=== PATIENT | male | born 1990 | race Caucasian/White ===

== ENCOUNTER 2019-09-08 15:17 | Emergency (ER) | payer MEDICAID, OTHER ==
[~2019-09-08] VITALS: Ht 172.7 cm; Wt 54.8 kg
[~2019-09-08 15:17] MED LIST: AZIT500T10 PO; INSU100C SQ-INSULIN; INSU100I29 SC; MAGN400T26 PO; NPH,100I4 SQ-INSULIN
[2019-09-08] MEDS ORDERED: SODIUM CHLORIDE FLUSH 10ML SYR IVF ONE (16:00)
[2019-09-08] MEDS ORDERED: ONDANSETRON 2MG/ML, 2ML IVPush ONE (16:00)
[2019-09-08] MEDS ORDERED: SODIUM CHLORIDE 0.9% 1,000ML IVBOLUS ONE ×2 (16:00→17:00)
[2019-09-08 16:03] LABS: BASOPHILS # (AUTO) 0.08 x10^3/uL (0-0.1); BASOPHILS % (AUTO) 1 % (0-1); EOSINOPHILS # (AUTO) 0.11 x10^3/uL (0-0.4); EOSINOPHILS % (AUTO) 1 % (1-7); LYMPHOCYTES % (AUTO) 23 % (22-44); MD NO; MEAN CORPUSCULAR HEMOGLOBIN 34.4 pg (27.5-34.5); MEAN CORPUSCULAR HGB CONC 34.3 g/dL (33.2-36.2); MEAN CORPUSCULAR VOLUME 100.4 fL (81-97); MEAN PLATELET VOLUME 7.4 fL (7.4-10.4); MONOCYTES # (AUTO) 0.45 x10^3/uL (0.2-0.8); MONOCYTES % (AUTO) 6 % (2-9); NEUTROPHILS # (AUTO) 5.31 x10^3/uL (1.8-6.8); NEUTROPHILS % (AUTO) 69 % (42-75); PLATELET COUNT 265 x10^3/uL (130-400); RED BLOOD COUNT 4.54 x10^6/uL (4.38-5.82); RED CELL DISTRIBUTION WIDTH 12.6 % (9.4-14.8)
[2019-09-08] MEDS ORDERED: ONDANSETRON 2MG/ML, 2ML ONE (16:05)
[2019-09-08 16:13] LABS: PH, VENOUS 7.264 pH (7.320-7.420)
[2019-09-08 16:13] LABS: ALANINE AMINOTRANSFERASE 32 U/L (12-78); ALBUMIN 4.3 g/dL (3.4-5.0); ANION GAP 19 mmol/L (5-15); CALCIUM 9.6 mg/dL (8.5-10.1); CHLORIDE 93 mmol/L (98-107); CREATININE 1.02 mg/dL (0.7-1.3)
[2019-09-08 16:15] LABS: O2 FLOW ROOM AIR L/min
[2019-09-08 16:16] LABS: ALKALINE PHOSPHATASE 138 U/L (45-117); BILIRUBIN,TOTAL 0.9 mg/dL (0.2-1.0); MICROSCOPIC AUTO; TOTAL PROTEIN 8.8 g/dL (6.4-8.2)
[2019-09-08 16:21] LABS: CULTURE INDICATED? NO
[2019-09-08] MEDS ORDERED: INSU100V8 SQ (16:22)
[2019-09-08 16:30] LABS: ACETONE, SERUM Large (80mg/dL) mg/dL (Negative)
[2019-09-08] MEDS ORDERED: PROMETHAZINE 25 MG/ML, 1ML ONE (16:33)
[2019-09-08] MEDS ORDERED: INSULIN SINGLE DOSE, ER ONE (16:43)
--- NOTE | 2019-09-08 16:55 | NUR ---
ASSUMED CARE OF PT 1615. BGL 399. MEDS PER NOV. PT A&OX4 GCS 15, FATHER AT BEDSIDE. PT VOMITED X1, PHENERGAN PER NOV.
[2019-09-08] MEDS ORDERED: INSULIN REGULAR 100 UNITS/ML, 3ML VIAL SQ-INSULIN ONE (17:00)
[2019-09-08] MEDS ORDERED: PROMETHAZINE 25 MG/ML, 1ML IM ONE (17:00)
--- NOTE | 2019-09-08 17:45 | NUR ---
2nd bolus infusing, bgl 313, pt resting, no more vomiting. vss. sr on monitor. call marie in reach.
--- NOTE | 2019-09-08 18:41 | NUR ---
PIV repositioned/retaped, was kinked off. fluids infusing, plan to recheck labs after 2nd bolus, MD aware of delay in fluids. vss, denies nausea at this time. call marie in reach.
--- NOTE | 2019-09-08 19:15 | NUR ---
BGL 183, IVF INFUSED, MD AWARE, LABS ORDERED.
[2019-09-08 19:38] LABS: ANION GAP 13 mmol/L (5-15); CALCIUM 8.1 mg/dL (8.5-10.1); CHLORIDE 106 mmol/L (98-107); CREATININE 0.75 mg/dL (0.7-1.3)
[2019-09-08 20:06] VITALS: BP 119/78
== END 2019-09-08 20:17 | disposition home or self-care (01) ==
LOC: ED 19:07
DX: E10.649 Type 1 diabetes mellitus with hypoglycemia without coma (principal); E10.10 Type 1 diabetes mellitus with ketoacidosis without coma; E10.40 Type 1 diabetes mellitus with diabetic neuropathy, unspecified; Z76.0 Encounter for issue of repeat prescription; F17.210 Nicotine dependence, cigarettes, uncomplicated
CPT/HCPCS: 36415; 80048; 80053; 81001; 82010; 82040; 82803; 82962; 85025; 96361; 96372; 96374; 99283; J1815; J2405; J2550; J7030

== ENCOUNTER 2019-09-09 06:24 | Inpatient (IN) | payer MEDICAID ==
[~2019-09-09] VITALS: Ht 177.8 cm; Wt 54.8 kg
[~2019-09-09 06:24] MED LIST changes: +INSU100V8 SQ
[2019-09-09] MEDS ORDERED: ONDANSETRON 2MG/ML, 2ML ONE (06:54)
[2019-09-09] MEDS ORDERED: FAMOTIDINE 20 MG/2 ML ONE ×2 (06:55→09:54)
[2019-09-09] MEDS ORDERED: ONDANSETRON 2MG/ML, 2ML IVPush ONE (07:00)
[2019-09-09] MEDS ORDERED: FAMOTIDINE 20 MG/2 ML IVPush ONE (07:00)
--- NOTE | 2019-09-09 07:05 | NUR ---
zaire simeon in to assess with me upon rooming pt, bedside report exchanged.
[2019-09-09] MEDS ORDERED: PANTOPRAZOLE 80 MG in SODIUM CHLORIDE 0.9% 50 ML IVPB ONE (07:08)
[2019-09-09] MEDS ORDERED: PANTOPRAZOLE 80 MG in SODIUM CHLORIDE 0.9% 100 ML IV SCH (07:08)
[2019-09-09] MEDS ORDERED: PANTOPRAZOLE 40 MG IV ONE (07:21)
[2019-09-09] MEDS ORDERED: PROMETHAZINE 25 MG/ML, 1ML ONE (07:21)
[2019-09-09] MEDS ORDERED: SODIUM CHLORIDE 0.9% 1,000ML IVBOLUS ONE (07:30)
[2019-09-09] MEDS ORDERED: PANTOPRAZOLE 40 MG IV IV ONE (07:30)
[2019-09-09] MEDS ORDERED: PROMETHAZINE 25 MG/ML, 1ML IM ONE (07:30)
[2019-09-09] MEDS ORDERED: SODIUM CHLORIDE FLUSH 10ML SYR IVF ONE (07:30)
--- NOTE | 2019-09-09 07:36 | NUR ---
PT CONTINUES TO VOMIT AFTER RECEIVING ZOFRAN. PHENERGAN GIVEN. IV BOLUS COMPLETED. WILL CONTINUE TO MONITOR
[2019-09-09 08:13] LABS: PH, VENOUS 7.014 pH (7.320-7.420)
--- NOTE | 2019-09-09 08:15 | NUR ---
CONTINUES TO VOMIT BUT FREQUENCY HAS SLOWED DOWN. PT HAS DIARRHEA WHEN HE VOMITS, COUGHS, URINATES. PT REMAINS A&O. CONTINUE TO MONITOR
[2019-09-09 08:22] LABS: MEAN CORPUSCULAR HEMOGLOBIN 34.6 pg (27.5-34.5); MEAN CORPUSCULAR VOLUME 101.7 fL (81-97); PLATELET COUNT 266 x10^3/uL (130-400); RED BLOOD COUNT 4.42 x10^6/uL (4.38-5.82); RED CELL DISTRIBUTION WIDTH 12.8 % (9.4-14.8)
[2019-09-09 08:26] LABS: ALBUMIN 3.9 g/dL (3.4-5.0); ANION GAP 28 mmol/L (5-15); CALCIUM 9.4 mg/dL (8.5-10.1); CHLORIDE 99 mmol/L (98-107)
[2019-09-09 08:30] LABS: ALANINE AMINOTRANSFERASE 28 U/L (12-78); ALKALINE PHOSPHATASE 123 U/L (45-117); BILIRUBIN,TOTAL 0.9 mg/dL (0.2-1.0); CREATININE 1.22 mg/dL (0.7-1.3); TOTAL PROTEIN 8.1 g/dL (6.4-8.2)
[2019-09-09] MEDS ORDERED: LACTATED RINGERS 1,000 ML IV ONE (08:30)
[2019-09-09 08:32] LABS: ACETONE, SERUM Large (80mg/dL) mg/dL (Negative)
--- NOTE | 2019-09-09 08:45 | NUR ---
PT ABLE TO STAND UP AT EDGE OF BED WHILE INCONTINENCE CLEANED AND WHEN USING URINAL. FATHER REMAINS AT BEDSIDE.
[2019-09-09 08:58] LABS: MICROSCOPIC INDICATED
[2019-09-09 08:59] LABS: CULTURE INDICATED? NO
[2019-09-09] MEDS ORDERED: LACTATED RINGERS 1,000 ML IVBOLUS ONE (09:00)
[2019-09-09 09:07] LABS: BASOPHILS # (AUTO) 0.04 x10^3/uL (0-0.1); BASOPHILS % (AUTO) 0 % (0-1); EOSINOPHILS # (AUTO) 0.02 x10^3/uL (0-0.4); EOSINOPHILS % (AUTO) 0 % (1-7); LYMPHOCYTES # (AUTO) 2.01 x10^3/uL (1-3.4); LYMPHOCYTES % (AUTO) 16 % (22-44); MD SCAN; MONOCYTES # (AUTO) 0.28 x10^3/uL (0.2-0.8); MONOCYTES % (AUTO) 2 % (2-9); NEUTROPHILS # (AUTO) 10.05 x10^3/uL (1.8-6.8); NEUTROPHILS % (AUTO) 81 % (42-75)
--- NOTE | 2019-09-09 09:09 | NUR ---
REPORT TO PB ELDER
--- NOTE | 2019-09-09 09:22 | NUR ---
THROUGHPUT RN: ISSAC AT [facility] AND CESAR AT [facility] BOTH DECLINED TO ACCEPT PT. PSN FAXED TO [facility].
[2019-09-09] MEDS ORDERED: LABETALOL 5MG/ML, 20ML IVPush PRN (09:30)
[2019-09-09] MEDS ORDERED: DOCUSATE 100 MG CAPSULE PO PRN (09:30)
[2019-09-09] MEDS ORDERED: FAMOTIDINE 20 MG/2 ML IVPush SCH (09:30)
[2019-09-09] MEDS ORDERED: hydrALAzine 20 MG/ML, 1ML IVPush PRN (09:30)
[2019-09-09] MEDS ORDERED: ENOXAPARIN 40 MG/0.4 ML SQ SCH (09:30)
[2019-09-09] MEDS ORDERED: ACETAMINOPHEN 325 MG TABLET PO PRN (09:30)
[2019-09-09] MEDS ORDERED: ONDANSETRON 2MG/ML, 2ML IVPush PRN (09:30)
[2019-09-09] MEDS ORDERED: NS + 20MEQ KCL 1,000 ML IV ONE (09:55)
[2019-09-09 10:00] LABS: FREE T4 (FREE THYROXINE) 1.07 ng/dL (0.76-1.46); TROPONIN I < 0.015 ng/mL (0.000-0.045)
[2019-09-09] MEDS: NS + 20MEQ KCL 1,000 ML IV SCH ×4 (10:03→19:22)
[2019-09-09] MEDS ORDERED: ENOXAPARIN 40 MG/0.4 ML ONE (10:11)
[2019-09-09] MEDS ORDERED: NICOTINE 14MG/24 HR PATCH.TD24 ONE (10:11)
[2019-09-09] MEDS: NICOTINE 14MG/24 HR PATCH.TD24 TD SCH (10:19)
--- NOTE | 2019-09-09 10:20 | NUR ---
DR AMAYA AT BEDSIDE. PT ASSESSMENT REVIEWED. DISCUSSED CURRENT ORDERS AND QUESTIONS ANSWERED.
[2019-09-09] MEDS: PANTOPRAZOLE 40 MG IV IVPush SCH ×2 (10:30→22:55)
[2019-09-09] MEDS ORDERED: METOCLOPRAMIDE 5 MG/ML, 2ML IVPush PRN (10:30)
[2019-09-09] MEDS ORDERED: PHENOL THROAT SPRAY BOTTLE MM PRN (10:30)
[2019-09-09 10:35] LABS: HEMOGLOBIN A1C 11.2 % (4.2-6.3)
--- NOTE | 2019-09-09 11:09 | NUR ---
SBAR RPT TO JERROD KUMARI. ALL FLUID BOLUSES COMPLETED. INS GTT SET UP IN PUMP AND IS READY TO START, PT NEEDS REPEAT FSBS PRIOR TO STARTING. KENYETTA AWARE.
--- NOTE | 2019-09-09 11:11 | NUR ---
LATE ENTRY 0920, SBAR RPT REC'D FROM JERROD RM AND PT CARE ASSUMED. PT MOVED TO TRAUMA ROOM 3.
[2019-09-09] MEDS: REGULAR INSULIN 62.5 UNITS in SODIUM CHLORIDE 0.9% 249.375 ML IV PRN (11:17)
[2019-09-09 11:54] LABS: MEAN CORPUSCULAR HEMOGLOBIN 34.4 pg (27.5-34.5); MEAN CORPUSCULAR HGB CONC 33.1 g/dL (33.2-36.2); MEAN CORPUSCULAR VOLUME 104.1 fL (81-97); MEAN PLATELET VOLUME 7.4 fL (7.4-10.4); PLATELET COUNT 272 x10^3/uL (130-400); RED BLOOD COUNT 4.24 x10^6/uL (4.38-5.82)
[2019-09-09 12:04] LABS: INTERNATIONAL NORMALIZED RATIO 1.04 (0.93-1.1); PROTHROMBIN TIME 10.9 Seconds (9.6-11.5)
[2019-09-09 12:18] LABS: ANION GAP 26 mmol/L (5-15); CALCIUM 8.4 mg/dL (8.5-10.1); CHLORIDE 109 mmol/L (98-107); CREATININE 0.94 mg/dL (0.7-1.3)
[2019-09-09] MEDS: CEFTRIAXONE PMX 1GM/50ML 50 ML IV SCH (12:32)
[2019-09-09 12:41] LABS: MD YES
[2019-09-09 12:43] LABS: BAND#(MANUAL) 0.26 x10^3/uL; BANDS%(MANUAL) 1 % (0-7); LYMPH#(MANUAL) 2.04 x10^3/uL (1-3.4); LYMPHS% (MANUAL) 8 % (22-44); METAMYELOCYTES# (MANUAL) 0.26 x10^3/uL (0-0); METAMYELOCYTES% (MANUAL) 1 % (0-1); MONOS#(MANUAL) 2.04 x10^3/uL (0.3-2.7); MONOS% (MANUAL) 8 % (2-9); SEG#(MANUAL) 20.91 x10^3/uL (1.8-6.8); SEGS% (MANUAL) 82 % (42-75)
[2019-09-09 12:44] LABS: ANISOCYTOSIS 1+
[2019-09-09 12:45] LABS: <PLATELET ESTIMATE> ADEQUATE; <PLT MORPHOLOGY> NORMAL PLT MORPH
[2019-09-09 15:27] LABS: ANION GAP 22 mmol/L (5-15); CALCIUM 8.4 mg/dL (8.5-10.1); CHLORIDE 115 mmol/L (98-107); CREATININE 0.96 mg/dL (0.7-1.3)
[2019-09-09 15:30] LABS: TROPONIN I < 0.015 ng/mL (0.000-0.045)
[2019-09-09] MEDS ORDERED: LORazepam 2 MG/ML, 1ML IV PRN ×3 (15:30)
[2019-09-09 18:23] VITALS: BP 169/95
[2019-09-09] MEDS: D5%-0.45NACL+KCL 20MEQ 1,000 ML IV SCH (18:40)
[2019-09-09 20:39] LABS: ANION GAP 17 mmol/L (5-15); CALCIUM 7.8 mg/dL (8.5-10.1); CHLORIDE 114 mmol/L (98-107); CREATININE 0.91 mg/dL (0.7-1.3)
[2019-09-10] MEDS: NS + 20MEQ KCL 1,000 ML IV SCH (00:43)
[2019-09-10 00:54] LABS: ANION GAP 7 mmol/L (5-15); CHLORIDE 116 mmol/L (98-107)
[2019-09-10] MEDS: D5%-0.45NACL+KCL 20MEQ 1,000 ML IV SCH (03:07)
[2019-09-10] MEDS: REGULAR INSULIN 62.5 UNITS in SODIUM CHLORIDE 0.9% 249.375 ML IV PRN (03:22)
[2019-09-10 04:50] VITALS: BP 138/82
[2019-09-10 04:51] LABS: BASOPHILS # (AUTO) 0.03 x10^3/uL (0-0.1); BASOPHILS % (AUTO) 0 % (0-1); EOSINOPHILS # (AUTO) 0.13 x10^3/uL (0-0.4); EOSINOPHILS % (AUTO) 1 % (1-7); LYMPHOCYTES # (AUTO) 1.25 x10^3/uL (1-3.4); LYMPHOCYTES % (AUTO) 10 % (22-44); MD NO; MEAN CORPUSCULAR HEMOGLOBIN 34.6 pg (27.5-34.5); MEAN CORPUSCULAR HGB CONC 33.8 g/dL (33.2-36.2); MEAN CORPUSCULAR VOLUME 102.5 fL (81-97); MEAN PLATELET VOLUME 7.5 fL (7.4-10.4); MONOCYTES # (AUTO) 1.13 x10^3/uL (0.2-0.8); MONOCYTES % (AUTO) 9 % (2-9); NEUTROPHILS # (AUTO) 10.48 x10^3/uL (1.8-6.8); NEUTROPHILS % (AUTO) 81 % (42-75); PLATELET COUNT 203 x10^3/uL (130-400); RED BLOOD COUNT 3.49 x10^6/uL (4.38-5.82); RED CELL DISTRIBUTION WIDTH 12.7 % (9.4-14.8)
[2019-09-10 04:52] LABS: ANION GAP 9 mmol/L (5-15); CALCIUM 8.2 mg/dL (8.5-10.1); CHLORIDE 114 mmol/L (98-107); CREATININE 0.86 mg/dL (0.7-1.3)
[2019-09-10 08:31] LABS: CHLORIDE 113 mmol/L (98-107)
[2019-09-10 08:35] LABS: ANION GAP 8 mmol/L (5-15); CREATININE 0.84 mg/dL (0.7-1.3)
[2019-09-10] MEDS: NICOTINE 14MG/24 HR PATCH.TD24 TD SCH (09:41)
[2019-09-10] MEDS ORDERED: INSULIN GLARGINE 100 UNITS/ML, PEN SQ-INSULIN SCH ×2 (10:00→21:00)
[2019-09-10] MEDS ORDERED: DEXTROSE 50%, 50ML SYRINGE IVPush PRN (10:00)
[2019-09-10] MEDS ORDERED: DEXTROSE 4 GM TAB.CHEW PO PRN (10:00)
[2019-09-10] MEDS ORDERED: GLUCAGON 1 MG IM PRN (10:00)
[2019-09-10] MEDS ORDERED: LISINOPRIL 5 MG TABLET PO SCH (10:00)
[2019-09-10] MEDS: PANTOPRAZOLE 40 MG IV IVPush SCH ×2 (10:32→22:24)
[2019-09-10] MEDS: INSULIN LISPRO 100 UNITS/ML, PEN SQ-INSULIN SCH ×3 (10:34→20:32)
[2019-09-10] MEDS: SODIUM CHLORIDE FLUSH 10ML SYR IVF SCH ×2 (10:34→20:32)
[2019-09-10 12:08] VITALS: BP 173/104
[2019-09-10] MEDS: CEFTRIAXONE PMX 1GM/50ML 50 ML IV SCH (13:35)
[2019-09-10] MEDS ORDERED: GABAPENTIN 300 MG CAPSULE ONE (14:00)
[2019-09-10] MEDS: GABAPENTIN 300 MG CAPSULE PO SCH ×2 (14:03→20:30)
[2019-09-10 19:18] VITALS: BP 172/105
[2019-09-10 20:15] VITALS: BP 178/98
[2019-09-10] MEDS: LISINOPRIL 10 MG TABLET PO SCH (20:30)
[2019-09-10] MEDS ORDERED: NICOTINE 14MG/24 HR PATCH.TD24 TD SCH (22:00)
[2019-09-11 02:20] VITALS: BP 165/96
[2019-09-11 05:30] LABS: ANION GAP 4 mmol/L (5-15); CALCIUM 8.3 mg/dL (8.5-10.1); CHLORIDE 109 mmol/L (98-107); CREATININE 0.52 mg/dL (0.7-1.3)
[2019-09-11 05:51] LABS: BASOPHILS # (AUTO) 0.03 x10^3/uL (0-0.1); BASOPHILS % (AUTO) 0 % (0-1); EOSINOPHILS % (AUTO) 1 % (1-7); LYMPHOCYTES # (AUTO) 2.04 x10^3/uL (1-3.4); LYMPHOCYTES % (AUTO) 28 % (22-44); MD NO; MEAN CORPUSCULAR HEMOGLOBIN 34.6 pg (27.5-34.5); MEAN CORPUSCULAR VOLUME 101.9 fL (81-97); MEAN PLATELET VOLUME 7.3 fL (7.4-10.4); MONOCYTES % (AUTO) 8 % (2-9); NEUTROPHILS # (AUTO) 4.46 x10^3/uL (1.8-6.8); NEUTROPHILS % (AUTO) 62 % (42-75); PLATELET COUNT 186 x10^3/uL (130-400); RED BLOOD COUNT 3.77 x10^6/uL (4.38-5.82); RED CELL DISTRIBUTION WIDTH 12.7 % (9.4-14.8)
[2019-09-11] MEDS: INSULIN LISPRO 100 UNITS/ML, PEN SQ-INSULIN SCH ×2 (07:00→11:00)
[2019-09-11] MEDS: PANTOPRAZOLE 40 MG IV IVPush SCH (07:29)
[2019-09-11 07:50] VITALS: BP 172/107
[2019-09-11] MEDS ORDERED: POTASSIUM CHLORIDE 20 MEQ TAB.ER.PRT PO SCH (08:00)
[2019-09-11] MEDS ORDERED: INSULIN GLARGINE 100 UNITS/ML, PEN SQ-INSULIN SCH (09:00)
[2019-09-11] MEDS: SODIUM CHLORIDE FLUSH 10ML SYR IVF SCH (09:00)
[2019-09-11] MEDS: LISINOPRIL 10 MG TABLET PO SCH (09:08)
[2019-09-11] MEDS: GABAPENTIN 300 MG CAPSULE PO SCH (09:08)
[2019-09-11] MEDS ORDERED: GABA300C10 PO (10:29)
[2019-09-11] MEDS ORDERED: INSU100I13 SQ-INSULIN (10:29)
[2019-09-11] MEDS ORDERED: INSU100I11 SQ-INSULIN (10:29)
[2019-09-11] MEDS ORDERED: LISI-167 PO (10:29)
[2019-09-11] MEDS ORDERED: AMOX1TAB61 PO (10:30)
[2019-09-11] MEDS ORDERED: POTA20TA89 PO (10:30)
[2019-09-11] MEDS: CEFTRIAXONE PMX 1GM/50ML 50 ML IV SCH (11:49)
== END 2019-09-11 12:57 | disposition home or self-care (01) | DRG 637 ==
LOC: ED 08:34 → EDIP 09:10 → UNDOADMIN 09:34 → CCU 11:01 → 3N 09-10 11:50 → DCLOUNGE 09-11 12:50
PROVIDERS: ADMIT Hospitalist; ATTEND Hospitalist
DX: E10.10 Type 1 diabetes mellitus with ketoacidosis without coma (principal); K22.6 Gastro-esophageal laceration-hemorrhage syndrome; N17.0 Acute kidney failure with tubular necrosis; R64 Cachexia; Z68.1 Body mass index [BMI] 19.9 or less, adult; D75.89 Other specified diseases of blood and blood-forming organs; E10.29 Type 1 diabetes mellitus with other diabetic kidney complication; E86.9 Volume depletion, unspecified; E87.6 Hypokalemia; F17.210 Nicotine dependence, cigarettes, uncomplicated; H91.92 Unspecified hearing loss, left ear; J02.0 Streptococcal pharyngitis; Z79.4 Long term (current) use of insulin; Z80.3 Family history of malignant neoplasm of breast; Z83.3 Family history of diabetes mellitus; Z86.39 Personal history of other endocrine, nutritional and metabolic disease
CPT/HCPCS: 36415; 96374; 99291; J3490; 71045; 80048; 80053; 81001; 82010; 82607; 82803; 82962; 83036; 83690; 83735; 84100; 84439; 84443; 84484; 85025; 85610; 87081; 87880; 93005; G0378; J0696; J1650; J1815; J2405; J2550; J3480; C9113; J0360; J2765; J7030; J7050; J7120

== ENCOUNTER 2019-11-05 14:25 | Emergency (ER) | payer MEDICAID ==
[~2019-11-05] VITALS: Ht 175.3 cm; Wt 53.9 kg
[~2019-11-05 14:25] MED LIST changes: +AMOX1TAB61 PO; +GABA300C10 PO; +INSU100I11 SQ-INSULIN; +INSU100I13 SQ-INSULIN; +LISI-167 PO; +POTA20TA89 PO
[2019-11-05 14:41] VITALS: BP 140/88
== END 2019-11-05 15:28 | disposition home or self-care (01) ==
LOC: ED 15:15
DX: E11.65 Type 2 diabetes mellitus with hyperglycemia (principal)
CPT/HCPCS: 82962; 99283

== ENCOUNTER 2020-02-16 09:56 | Emergency (ER) | payer SELFPAY ==
[~2020-02-16] VITALS: Ht 172.7 cm; Wt 55.1 kg
--- NOTE | 2020-02-16 10:38 | NUR ---
RICCO PRIETO AT BEDSIDE FOR EVAL AT THIS TIME.
--- NOTE | 2020-02-16 11:11 | NUR ---
THIS IS A 30 YO MALE WHO PRESENTS TO THE ER REQUESTING A REFILL OF INSULIN. PT AO X 4. SKIN PWD. RESP EVEN AND UNLABORED. PT DENIES ANY MEDICAL COMPLAINTS. PT'S BS IS 338, HOWEVER PT REPORTED THAT HE JUST ATE JOSIE IN THE BOX AND JUST TOOK A SHOT OF INSULIN. BP ELEVATED, PA CONNER AWARE. PT AWARE. PT HAS RX FOR LISINOPRIL AND HAS LISINOPRIL AT HOME, HOWEVER, PT STATES "I JUST FORGET TO TAKE IT". PT VERBALIZES THAT HE WILL TAKE IT WHEN HE GETS HOME. FAMILY AT BEDSIDE.
[2020-02-16] MEDS ORDERED: LISINOPRIL 20 MG TABLET PO ONE (11:30)
[2020-02-16 11:38] VITALS: BP 179/113
== END 2020-02-16 11:40 | disposition home or self-care (01) ==
LOC: ED 10:44
DX: E11.9 Type 2 diabetes mellitus without complications (principal); Z76.0 Encounter for issue of repeat prescription; F17.210 Nicotine dependence, cigarettes, uncomplicated
CPT/HCPCS: 82962; 99282

== ENCOUNTER 2020-07-02 17:52 | Emergency (ER) | payer SELFPAY ==
[~2020-07-02] VITALS: Ht 175.3 cm; Wt 56.5 kg
[2020-07-02] MEDS ORDERED: ONDANSETRON 2MG/ML, 2ML ONE (18:27)
[2020-07-02 18:34] LABS: PH, VENOUS 7.435 pH (7.320-7.420)
--- NOTE | 2020-07-02 18:40 | NUR ---
MUSCLE ACHES, BILAT FOOT PAIN, HOME FSBS 191, FSBS 231, HX:DM1. PT IN BED WITH CONT SPO2, BP Q 30 MIN SIDE RAIS UP X2, CALL LIGHT IN REACH. WENT OVER PLAN OF CARE FROM ORDER LIST. AGREES TO PLAN.
[2020-07-02 18:45] LABS: BASOPHILS % (AUTO) 1 % (0-1); EOSINOPHILS % (AUTO) 2 % (1-7); LYMPHOCYTES % (AUTO) 26 % (22-44); MEAN CORPUSCULAR HEMOGLOBIN 33.7 pg (27.5-34.5); MEAN CORPUSCULAR HGB CONC 34.3 g/dL (33.2-36.2); MEAN PLATELET VOLUME 7.9 fL (7.4-10.4); MONOCYTES % (AUTO) 11 % (2-9); NEUTROPHILS % (AUTO) 60 % (42-75); PLATELET COUNT 217 x10^3/uL (130-400); RED BLOOD COUNT 4.78 x10^6/uL (4.38-5.82); RED CELL DISTRIBUTION WIDTH 13.2 % (9.4-14.8)
[2020-07-02 18:47] LABS: ALANINE AMINOTRANSFERASE 17 U/L (12-78); ALBUMIN 3.4 g/dL (3.4-5.0); ANION GAP 5 mmol/L (5-15); CALCIUM 9.3 mg/dL (8.5-10.1); CHLORIDE 101 mmol/L (98-107); CREATININE 0.82 mg/dL (0.7-1.3)
[2020-07-02 18:48] LABS: MD NO
[2020-07-02 18:49] LABS: ALKALINE PHOSPHATASE 69 U/L (45-117); TOTAL PROTEIN 7.1 g/dL (6.4-8.2)
[2020-07-02] MEDS ORDERED: ONDANSETRON 2MG/ML, 2ML IVPush ONE (19:00)
[2020-07-02] MEDS ORDERED: SODIUM CHLORIDE 0.9% 1,000ML IVBOLUS ONE (19:00)
--- NOTE | 2020-07-02 19:22 | NUR ---
FIRST CONTACT WITH PT, IVF INFUSED UP TO BATHROOM URINE SENT. HTN STATES HE HAS NOT BEEN TAKING HIS LISINOPRIL 20MG PRESCRIBED. REPORTS FEELING SLIGHTLY BETTER AFTER IVF. PLACED BACK ON CONT PULSE OX, B/P.
[2020-07-02 19:36] LABS: MICROSCOPIC AUTO
[2020-07-02 19:38] LABS: ACETONE, SERUM Moderate(40mg/dL) (Negative)
[2020-07-02] MEDS ORDERED: ENALAPRILAT 1.25 MG/ML, 1ML ONE (19:57)
[2020-07-02] MEDS ORDERED: ENALAPRILAT 1.25 MG/ML, 2ML IV ONE (20:00)
--- NOTE | 2020-07-02 20:06 | NUR ---
MEDICATED PER ORDER, PT REPORTS FEELING BETTER. WILL CONTINUE TO MONITOR.
--- NOTE | 2020-07-02 21:28 | NUR ---
IV DC CATH INTACT, PT DC WITH INSTRUCT AND WORK NOTE PER ERP REQUEST. VSS, NAD. PT VERBALIZES UNDERSTANDING OF INSTRUCT AND FU. TO RETURN TO ER IF WORSE OR CONERNS.
[2020-07-02 21:29] VITALS: BP 145/91
== END 2020-07-02 21:31 | disposition home or self-care (01) ==
LOC: ED 20:18
DX: E11.65 Type 2 diabetes mellitus with hyperglycemia (principal); M79.671 Pain in right foot; M79.672 Pain in left foot; I10 Essential (primary) hypertension; F17.200 Nicotine dependence, unspecified, uncomplicated
CPT/HCPCS: 36415; 80053; 81001; 82010; 82803; 82962; 85025; 96361; 96374; 96375; 99284; J2405; J7030